=== PATIENT | female | born 1985 | race Caucasian/White ===

== ENCOUNTER 2017-01-23 10:15 | Outpatient (CLI) | payer OTHER | END 2017-01-23 11:38 | disposition home or self-care (01) | LOC: LC 10:15 | PROVIDERS: ATTEND Obstetrics & Gynecology | PROC: 4A1HXCZ Monitoring of Products of Conception, Cardiac Rate, External Approach (ICD-10-PCS; principal; 2017-01-23) | DX: O10.913 Unspecified pre-existing hypertension complicating pregnancy, third trimester (principal); Z3A.34 34 weeks gestation of pregnancy | CPT/HCPCS: 59025 ==

== ENCOUNTER 2017-02-13 16:04 | Outpatient (CLI) | payer OTHER ==
--- NOTE | 2017-02-13 16:10 | Non Stress Test Report ---
Non Stress Test Datetime Report Generated by CPN: 02/13/2017 16:09 DEMOGRAPHIC EGA NST: 34.2 INDICATION Indication for Study: Gestational Hypertension; Ordered by Provider MONITORING Monitor Explained: Monitor Explained; Test Explained; Patient Verbalized Understanding Time on Monitor: 01/23/2017 10:33 Time off Monitor: 01/23/2017 11:17 NST Duration: 44 NST INTERVENTIONS NST Interventions: PO Hydration; Reposition Patient BABY A: [id number] BABY A Movement : Present Contraction Frequency : OCC FHR Baseline : 130 Accelerations : 15X15 Decelerations : None Variability : Moderate 6-25bpm NST Review: Meets Criteria for Reactive NST NST Review and Verified By : Keesha Bellavancbryan RNC NST Results: Reactive NST REPORT Report Trigger: Send Report
[2017-02-13 16:35] LABS: HEMOGLOBIN 11.9 g/dL (12.0-15.5); RED BLOOD COUNT 4.47 10^6/uL (3.72-5.28); WHITE BLOOD COUNT 10.9 10^3/uL (4.0-10.5)
[2017-02-13 16:36] LABS: ABSOLUTE EOSINOPHILS # (AUTO) 0.1 10^3/uL (0.0-0.6); ABSOLUTE LYMPHOCYTES (AUTO) 2.4 10^3/uL (0.5-4.7); ABSOLUTE NEUT (AUTO) 7.4 10^3/uL (1.7-8.2); BASOPHILS % (AUTO) 0.2 % (0-2); EOSINOPHILS % (AUTO) 0.6 % (0-6); HEMATOCRIT 35.9 % (36.0-47.0); HGB HCT DIFFERENCE -0.2; LYMPHOCYTES % (AUTO) 22.3 % (13-45); MEAN CORPUSCULAR HEMOGLOBIN 26.7 pg (27.0-33.4); MEAN CORPUSCULAR HGB CONC 33.2 g/dL (32.0-36.0); MEAN CORPUSCULAR VOLUME 80 fl (80-97); MONOCYTES % (AUTO) 9.1 % (3-13); RED CELL DISTRIBUTION WIDTH 14.8 % (11.5-14.0); SEGMENTED NEUTROPHILS % (AUTO) 67.8 % (42-78)
[2017-02-13 16:37] LABS: APPEARANCE,URINE CLOUDY; BILIRUBIN,URINE NEGATIVE (NEGATIVE); GLUCOSE, URINE NEGATIVE (NEGATIVE); KETONES,URINE NEGATIVE (NEGATIVE); LEUKOCYTE ESTERASE,URINE MODERATE (NEGATIVE); NITRITE,URINE NEGATIVE (NEGATIVE); PROTEIN,URINE NEGATIVE (NEGATIVE); URINE SPECIFIC GRAVITY 1.016; UROBILINOGEN,URINE NEGATIVE mg/dL (<2.0)
[2017-02-13 16:53] LABS: ALANINE AMINOTRANSFERASE 25 U/L (9-52); ALBUMIN 3.4 g/dL (3.5-5.0); ALKALINE PHOSPHATASE 153 U/L (38-126); ANION GAP 10 (5-19); ASPARTATE AMINO TRANSFERASE 24 U/L (14-36); BILIRUBIN,TOTAL 0.3 mg/dL (0.2-1.3); BLOOD UREA NITROGEN 10 mg/dL (7-20); CALCIUM 9.4 mg/dL (8.4-10.2); CARBON DIOXIDE 21 mmol/L (22-30); CHLORIDE 107 mmol/L (98-107); CREATININE RESULT 0.57 mg/dL (0.52-1.25); GLUCOSE 72 mg/dL (75-110); LDH 420 U/L (313-618); POTASSIUM 4.4 mmol/L (3.6-5.0); SODIUM 137.5 mmol/L (137-145); TOTAL PROTEIN 6.1 g/dL (6.3-8.2); URIC ACID 4.8 mg/dL (2.5-6.2)
--- NOTE | 2017-02-13 16:53 | Non Stress Test Report ---
Non Stress Test Datetime Report Generated by CPN: 02/13/2017 16:53 DEMOGRAPHIC EGA NST: 37.2 INDICATION Indication for Study: Ordered by Provider Indication for Study (NST) Other: pre-e MONITORING Monitor Explained: Monitor Explained; Test Explained; Patient Verbalized Understanding Time on Monitor: 02/13/2017 16:24 Time off Monitor: 02/13/2017 16:50 NST Duration: 26 NST INTERVENTIONS NST Interventions: PO Hydration; Reposition Patient BABY A Movement : Present Contraction Frequency : denies FHR Baseline : 130 Accelerations : 15X15 Decelerations : None Variability : Moderate 6-25bpm NST Review: Meets Criteria for Reactive NST NST Review and Verified By : Sowmya Camp RNC NST Results: Reactive NST REPORT Report Trigger: Send Report
[2017-02-13 17:09] LABS: URINE BARBITURATES SCREEN NEGATIVE; URINE METHADONE SCREEN NEGATIVE; URINE OPIATES LOW NEGATIVE; URINE PHENCYCLIDINE SCREEN NEGATIVE
== END 2017-02-13 17:20 | disposition home or self-care (01) ==
LOC: LC 16:04
PROVIDERS: ATTEND Obstetrics & Gynecology
PROC: 4A1HXCZ Monitoring of Products of Conception, Cardiac Rate, External Approach (ICD-10-PCS; principal; 2017-02-13)
DX: O13.3 Gestational [pregnancy-induced] hypertension without significant proteinuria, third trimester (principal); Z3A.37 37 weeks gestation of pregnancy
CPT/HCPCS: 36415; 59025; 80053; 80307; 81001; 83615; 84550; 85025

== ENCOUNTER 2017-02-20 05:11 | Inpatient (IN) | payer OTHER ==
[2017-02-17 12:08] LABS: ABSOLUTE LYMPHOCYTES (AUTO) 1.5 10^3/uL (0.5-4.7); ABSOLUTE MONOCYTES (AUTO) 0.6 10^3/uL (0.1-1.4); ABSOLUTE NEUT (AUTO) 6.7 10^3/uL (1.7-8.2); BASOPHILS % (AUTO) 0.3 % (0-2); EOSINOPHILS % (AUTO) 0.5 % (0-6); HEMATOCRIT 36.7 % (36.0-47.0); HEMOGLOBIN 12.3 g/dL (12.0-15.5); HGB HCT DIFFERENCE 0.2; LYMPHOCYTES % (AUTO) 17.3 % (13-45); MEAN CORPUSCULAR HGB CONC 33.6 g/dL (32.0-36.0); MEAN CORPUSCULAR VOLUME 80 fl (80-97); MONOCYTES % (AUTO) 6.9 % (3-13); RED BLOOD COUNT 4.56 10^6/uL (3.72-5.28); RED CELL DISTRIBUTION WIDTH 14.8 % (11.5-14.0); WHITE BLOOD COUNT 8.9 10^3/uL (4.0-10.5)
[2017-02-17 12:20] LABS: APPEARANCE,URINE SLIGHTLY-CLOUDY; BILIRUBIN,URINE NEGATIVE (NEGATIVE); GLUCOSE, URINE NEGATIVE (NEGATIVE); KETONES,URINE NEGATIVE (NEGATIVE); LEUKOCYTE ESTERASE,URINE NEGATIVE (NEGATIVE); NITRITE,URINE NEGATIVE (NEGATIVE); PROTEIN,URINE NEGATIVE (NEGATIVE); URINE SPECIFIC GRAVITY 1.012; UROBILINOGEN,URINE NEGATIVE mg/dL (<2.0)
[2017-02-17 13:45] LABS: URINE BARBITURATES SCREEN NEGATIVE; URINE METHADONE SCREEN NEGATIVE; URINE OPIATES LOW NEGATIVE; URINE PHENCYCLIDINE SCREEN NEGATIVE
[~2017-02-20 05:11] MED LIST: CEFAZOLIN 2 GM/D5W RTU 2 GM/50 ML RTUPB IV PRN; LACTATED RINGERS 1000 ML IV PRN; LIDOCAINE 0.5% INJ-PF (5 MG/ML) 50 ML SDV SUBCUT PRN; RINGERS SOLUTION,LACTATED 1,000 ML IV ONE
[2017-02-20] MEDS ORDERED: FAMOTIDINE 20 MG TABLET PO ONE (05:35)
[2017-02-20] MEDS ORDERED: MIDAZOLAM 2 MG/2 ML INJ ONE ×2 (08:46→08:47)
[2017-02-20] MEDS ORDERED: PROPOFOL INJ 200 MG/20 ML VIAL IV ONE (08:46)
[2017-02-20] MEDS ORDERED: OXYTOCIN 10 UNIT/ML VIAL ONE (08:46)
[2017-02-20] MEDS ORDERED: FENTANYL CITRATE INJ/PF 100 MCG/2 ML AMPUL ONE (08:46)
[2017-02-20] MEDS ORDERED: ACETAMINOPHEN 100 ML IV ONE (10:20)
--- NOTE | 2017-02-20 10:22 | Operative Report ---
Operative Report DATE OF SURGERY: 02/20/17 PREOPERATIVE DIAGNOSIS: Intrauterine at 39 weeks with chronic hypertension, breech presentation, history of , and desire for repeat OPERATION: Repeat low transverse cervical section ANESTHESIA: Spinal TISSUE REMOVED OR ALTERED: Placenta ESTIMATED BLOOD LOSS: 500 mL INTRAOPERATIVE FINDINGS: [place] female infant in stent with complete breech presentation, Apgars 5 and 8, weight 2990 g, copious amount of clear amniotic fluid, bladder adhesions up approximately a third of the way on the uterus tubes and ovaries not visualized. PROCEDURE: After discussing risks benefits and alternatives of the procedure and obtaining informed consent the patient was taken to the operating room where spinal anesthesia was achieved. She was positioned in the dorsal supine position with a leftward tilt. She was then prepped and draped in the usual standard fashion. Pfannenstiel skin incision was made and the abdomen was entered in layers in the usual standard fashion. Bladder adhesions were lysed sharply. The C safe knife was used to make a low-transverse hysterotomy incision. The surgeon's hand was entered into the hysterotomy incision and and grasped. The was delivered to the level of the it's waist. Each arm was swept down over the anterior chest wall and the head was delivered easily by keeping it in flexion. The cord was clamped and cut and nasopharynx and oropharynx bulb suctioned. The infant was handed to pediatrics who were present. The placenta was manually extracted. The uterus was cleared of all clots and debris. The hysterotomy incision was closed with 0 Monocryl in a running locked fashion. Hemostasis was observed. The peritoneal cavity was irrigated with saline and hemostasis was again assured. A layer of Interceed was placed in an inverted T fashion over the lower uterine segment and anterior aspect of the uterus. Peritoneum was closed with 2-0 Vicryl in a pursestring fashion. Rectus muscles were loosely reapproximated with interrupted stitches of 2-0 Vicryl. The subfascial space was inspected and noted to be hemostatic. The fascia was closed with #1 Vicryl. The subcutaneous tissues were irrigated and hemostasis assured. 3-O plain gut was used to reapproximate the subcutaneous space which was quite thick. The skin was closed in a subcuticular fashion with 4-0 Monocryl. An OpSite dressing was applied. The patient was taken to recovery in stable condition. All sponge needle lap and instrument counts were correct correct.
[2017-02-20] MEDS ORDERED: METOCLOPRAMIDE HCL INJ/PF 10 MG/2 ML SDV ONE (12:07)
[2017-02-20] MEDS ORDERED: ONDANSETRON HCL INJ/PF 4 MG/2 ML SDV ONE (12:07)
[2017-02-20] MEDS ORDERED: PHENYLEPHRINE HCL INJ/PF 10 MG/1 ML SDV ONE (12:07)
[2017-02-20] MEDS ORDERED: OXYCODONE-ACETAMINOPHEN 5-325 MG TABLET ONE (12:44)
[2017-02-20] MEDS ORDERED: ACETAMINOPHEN 325 MG TABLET PO PRN (12:46)
[2017-02-20] MEDS ORDERED: MEASLES,MUMPS&RUBELLA VACC/PF 0.5 ML VIAL SUBCUT PRN (12:46)
[2017-02-20] MEDS ORDERED: DIPH/PERTUSS(ACELL)/TETANUS VAC/PF 0.5 ML SYR (>=10YO) IM PRN (12:46)
[2017-02-20] MEDS ORDERED: HYDROMORPHONE HCL INJ/PF 2 MG/ML AMPULE IV PRN (12:46)
[2017-02-20] MEDS ORDERED: PROMETHAZINE HCL INJ 25 MG/1 ML VIAL IM PRN (12:46)
[2017-02-20] MEDS ORDERED: OXYTOCIN/NORMAL SALINE 20 UNIT/1,000 ML RTUINJ INJ PRN (12:46)
[2017-02-20] MEDS ORDERED: SIMETHICONE 80 MG TAB.CHEW PO PRN (12:46)
[2017-02-20] MEDS ORDERED: OXYCODONE-ACETAMINOPHEN 5-325 MG TABLET PO PRN (12:46)
[2017-02-20] MEDS: OXYCODONE-ACETAMINOPHEN 5-325 MG TABLET PO PRN ×2 (16:58→21:49)
[2017-02-20] MEDS ORDERED: CEFAZOLIN 2 GM/D5W RTU 2 GM/50 ML RTUPB IV ONE (17:00)
[2017-02-20] MEDS: IBUPROFEN 800 MG TABLET PO SCH ×2 (18:02→23:21)
[2017-02-20] MEDS: DOCUSATE SODIUM 100 MG CAPSULE PO SCH (18:56)
[2017-02-20] MEDS: LABETALOL HCL 200 MG TABLET PO SCH (21:48)
[2017-02-21] MEDS: OXYCODONE-ACETAMINOPHEN 5-325 MG TABLET PO PRN ×2 (04:03→09:37)
[2017-02-21] MEDS: IBUPROFEN 800 MG TABLET PO SCH ×3 (05:27→18:47)
[2017-02-21 06:46] LABS: HEMATOCRIT 32.3 % (36.0-47.0); HEMOGLOBIN 10.8 g/dL (12.0-15.5); HGB HCT DIFFERENCE 0.1; MEAN CORPUSCULAR HEMOGLOBIN 26.9 pg (27.0-33.4); MEAN CORPUSCULAR HGB CONC 33.4 g/dL (32.0-36.0); MEAN CORPUSCULAR VOLUME 81 fl (80-97); RED BLOOD COUNT 4.02 10^6/uL (3.72-5.28); WHITE BLOOD COUNT 11.2 10^3/uL (4.0-10.5)
[2017-02-21] MEDS: LABETALOL HCL 200 MG TABLET PO SCH ×2 (09:35→21:58)
[2017-02-21] MEDS: PRENATAL VITAMIN W-O CA NO5/FE FUMARATE/FA CAPSULE PO SCH (09:36)
[2017-02-21] MEDS: DOCUSATE SODIUM 100 MG CAPSULE PO SCH ×2 (09:37→18:47)
--- NOTE | 2017-02-21 11:39 | PDOC PROGRESS REPORT ---
Subjective-OB Subjective: Post Delivery Day: 31 year old. Denies any needs at this time pt in shower spouse present and reports recently being medicated for pain ambulating well opsite changed by RN- reports well approximated with some serosanguineous drainage plan to return to eval Physical Exam (OB) Vital Signs: Temp Pulse Resp BP Pulse Ox 97.8 F 80 18 121/65 98 02/21/17 08:13 02/21/17 08:13 02/21/17 08:13 02/21/17 08:13 02/21/17 08:13 Intake & Output 02/20/17 02/21/17 02/22/17 06:59 06:59 06:59 Intake Total 1490 Output Total 1670 Balance -180 Weight 278 kg - PIH/Pre-Eclampsia Clonus: Negative Headache: Absent Epigastric Pain: No Visual Changes: No - Dressing Removed: Yes - opsite dressing changed d/t saturation Incision: Well Approximated Closure Type: opsite - Lochia Lochia Amount: Scant < 10 ml Lochia Color: Rubra/Red - Abdomen Description: Tender, Soft Hernia Present: No Fundal Description: Firm, Midline Fundal Height: u/u - u/2 Objective-Diagnostic Laboratory: 02/21/17 06:33 02/21/17 06:33 WBC 11.2 H RBC 4.02 Hgb 10.8 L Hct 32.3 L MCV 81 MCH 26.9 L MCHC 33.4 RDW 15.0 H Plt Count 173
[2017-02-22] MEDS: IBUPROFEN 800 MG TABLET PO SCH ×2 (01:40→07:00)
--- NOTE | 2017-02-22 09:03 | PDOC PROGRESS REPORT ---
Subjective-OB Subjective: Post Delivery Day: 31 year old. Denies any needs at this time Doing well, sitting on side of bed holding baby, ready to go home, breast feeding, pain under control, voiding, scant bleeding Physical Exam (OB) Vital Signs: Temp Pulse Resp BP Pulse Ox 97.4 F 80 18 126/63 H 100 02/22/17 08:04 02/22/17 08:04 02/22/17 08:04 02/22/17 08:04 02/22/17 08:04 Intake & Output 02/21/17 02/22/17 02/23/17 06:59 06:59 06:59 Intake Total 1490 560 Output Total 1670 Balance -180 560 - PIH/Pre-Eclampsia Clonus: Negative Headache: Absent Epigastric Pain: No Visual Changes: No - Dressing Removed: Yes Incision: Well Approximated Closure Type: opsite - Lochia Lochia Amount: Scant < 10 ml Lochia Color: Rubra/Red - Abdomen Description: Firm Hernia Present: No Fundal Description: Firm Fundal Height: u/u - u/2 Objective-Diagnostic Laboratory: 02/21/17 06:33 Assessment and Plan(PN) - Assessment and Plan (1) Chronic hypertension in obstetric context Qualifiers: Trimester: first trimester Qualified Code(s): O10.911 - Unspecified pre-existing hypertension complicating , first trimester Is this a current diagnosis for this admission?: Yes (2) Morbid obesity with body mass index of 50 or higher Is this a current diagnosis for this admission?: Yes (3) Delivery by elective caesarean section Is this a current diagnosis for this admission?: Yes - Time Spent with Patient Time with patient: Less than 15 minutes Medications reviewed and adjusted accordingly: Yes - Disposition Anticipated Discharge: Home - home today
--- NOTE | 2017-02-22 09:11 | PDOC DISCHARGE SUMMARY ---
Final Diagnosis Discharge Date: 02/22/17 - Final Diagnosis (1) Chronic hypertension in obstetric context Is this a current diagnosis for this admission?: Yes (2) Morbid obesity with body mass index of 50 or higher Is this a current diagnosis for this admission?: Yes (3) Delivery by elective caesarean section Is this a current diagnosis for this admission?: Yes Discharge Data - Discharge Medication Home Medications: Vit/Iron Fumarate/FA [ Tablet] 1 tab PO DAILY 01/23/17 Labetalol HCl 1 tab PO BID #60 tablet 02/22/17 Oxycodone HCl/Acetaminophen [Percocet 5-325 mg Tablet] 1 tab PO Q4HP PRN #30 tablet 02/22/17 Gestational Age: 38.5 Reason(s) for Admission: Ceasarean Section-Primary, Obstetric Complications, Gestional Diabetes Procedures: NST, Ultrasound Intrapartum Procedure(s): : Low Cervical, Transverse - [place] Data Baby 1 Female Weight: 3.005 kg Home with Mother: Yes Complications: No - Diagnosis Test Laboratory: Temp Pulse Resp BP Pulse Ox 97.4 F 80 18 126/63 H 100 02/22/17 08:04 02/22/17 08:04 02/22/17 08:04 02/22/17 08:04 02/22/17 08:04 02/17/17 02/17/17 02/21/17 11:08 11:15 06:33 RBC 4.56 4.02 Hgb 12.3 10.8 L Hct 36.7 32.3 L Urine Opiates Screen NEGATIVE - Discharge information/Instructions Discharge Activity: Activity As Tolerated, No Driving, No Lifting Over 10 Pounds , No Lifting/Push/Pulling, Pelvic Rest, No tub bath Discharge Diet: Regular Disposition: HOME, SELF-CARE Follow up with: [facility] in: 1, Weeks
[2017-02-22 09:14] VITALS: BP 131/67
[2017-02-22] MEDS: PRENATAL VITAMIN W-O CA NO5/FE FUMARATE/FA CAPSULE PO SCH (09:25)
[2017-02-22] MEDS: DOCUSATE SODIUM 100 MG CAPSULE PO SCH (09:25)
[2017-02-22] MEDS: LABETALOL HCL 200 MG TABLET PO SCH (09:25)
[2017-02-22] MEDS: OXYCODONE-ACETAMINOPHEN 5-325 MG TABLET PO PRN (10:05)
== END 2017-02-22 12:00 | disposition home or self-care (01) | DRG 765 ==
LOC: 2S 05:11
PROVIDERS: ADMIT Obstetrics & Gynecology; ATTEND Obstetrics & Gynecology
PROC: 4A1HXCZ Monitoring of Products of Conception, Cardiac Rate, External Approach (ICD-10-PCS; 2017-02-20)
PROC: 10D00Z1 Extraction of Products of Conception, Low, Open Approach (ICD-10-PCS; principal; 2017-02-20 08:30)
DX: O64.1XX0 Obstructed labor due to breech presentation, not applicable or unspecified (principal); O10.92 Unspecified pre-existing hypertension complicating childbirth; Z68.43 Body mass index [BMI] 50.0-59.9, adult; O24.429 Gestational diabetes mellitus in childbirth, unspecified control; O34.211 Maternal care for low transverse scar from previous cesarean delivery; Z79.899 Other long term (current) drug therapy; O99.214 Obesity complicating childbirth; E66.01 Morbid (severe) obesity due to excess calories; Z82.49 Family history of ischemic heart disease and other diseases of the circulatory system; Z83.3 Family history of diabetes mellitus; Z37.0 Single live birth; Z3A.39 39 weeks gestation of pregnancy; Z87.891 Personal history of nicotine dependence
CPT/HCPCS: 1961; 36415; 59025; 80307; 81001; 85025; 85027; 86850; 86900; 86901; 88307; 94799; C1765; J0131; J0690; J2250; J2370; J2405; J2590; J2704; J2765; J3010; J7120

== ENCOUNTER 2019-12-17 09:40 | Outpatient (CLI) | payer OTHER ==
[2019-12-17 10:04] LABS: APPEARANCE,URINE SLIGHTLY-CLOUDY; BILIRUBIN,URINE NEGATIVE (NEGATIVE); COLOR,URINE YELLOW; GLUCOSE, URINE NEGATIVE (NEGATIVE); KETONES,URINE NEGATIVE (NEGATIVE); LEUKOCYTE ESTERASE,URINE SMALL (NEGATIVE); NITRITE,URINE NEGATIVE (NEGATIVE); PROTEIN,URINE NEGATIVE (NEGATIVE); URINE SPECIFIC GRAVITY 1.012; UROBILINOGEN,URINE NEGATIVE mg/dL (<2.0)
[2019-12-17 10:26] LABS: URINE AMPHETAMINES SCREEN NEGATIVE; URINE BARBITURATES SCREEN NEGATIVE; URINE BENZODIAZEPINES SCREEN NEGATIVE; URINE COCAINE SCREEN NEGATIVE; URINE MARIJUANA (THC) SCREEN NEGATIVE; URINE METHADONE SCREEN NEGATIVE; URINE PHENCYCLIDINE SCREEN NEGATIVE
[2019-12-17 10:30] LABS: UR PRO/CREAT RATIO RESULT 0.2 mg/mg (0.0-0.2); URINE CREATININE 66.5 mg/dL (16-327); URINE PROTEIN 11.3 mg/dL (<12)
[2019-12-17 10:37] LABS: HEMATOCRIT 40.4 % (36.0-47.0); HEMOGLOBIN 13.7 g/dL (12.0-15.5); MEAN CORPUSCULAR HEMOGLOBIN 29.2 pg (27.0-33.4); MEAN CORPUSCULAR VOLUME 86 fl (80-97); PLATELET COUNT 146 10^3/uL (150-450); RED BLOOD COUNT 4.69 10^6/uL (3.72-5.28); RED CELL DISTRIBUTION WIDTH 14.2 % (11.5-14.0); WHITE BLOOD COUNT 9.5 10^3/uL (4.0-10.5)
[2019-12-17 11:02] LABS: ALBUMIN 3.2 g/dL (3.5-5.0); ALKALINE PHOSPHATASE 111 U/L (38-126); ANION GAP 6 (5-19); ASPARTATE AMINO TRANSFERASE 20 U/L (14-36); BILIRUBIN,TOTAL 0.3 mg/dL (0.2-1.3); BLOOD UREA NITROGEN 7 mg/dL (7-20); CARBON DIOXIDE 22 mmol/L (22-30); CHLORIDE 106 mmol/L (98-107); POTASSIUM 4.2 mmol/L (3.6-5.0); TOTAL PROTEIN 5.9 g/dL (6.3-8.2); URIC ACID 4.5 mg/dL (2.5-7.0)
[2019-12-17 11:11] LABS: GLUCOSE 69 mg/dL (75-110)
--- NOTE | 2019-12-17 12:55 | Non Stress Test Report ---
Non Stress Test Datetime Report Generated by CPN: 12/17/2019 12:55 DEMOGRAPHIC EGA NST: 36.1 VITAL SIGNS Temperature - NST: 97.9 RESP - NST: 16 MONITORING Monitor Explained: Monitor Explained; Test Explained; Patient Verbalized Understanding Time on Monitor: 12/17/2019 09:55 Time off Monitor: 12/17/2019 11:00 NST Duration: 65 NST INTERVENTIONS NST Interventions: PO Hydration; Reposition Patient Physician Notified NST: K JENKINS, CNM BABY A: [id number] BABY A Movement : Present Contraction Frequency : IRREG FHR Baseline : 140 Accelerations : 15X15 Decelerations : None Variability : Moderate 6-25bpm NST Review: Meets Criteria for Reactive NST NST Review and Verified By : BG Huitron Results: Reactive NST REPORT Report Trigger: Send Report
== END 2019-12-17 11:55 | disposition home or self-care (01) ==
LOC: LC 09:40
PROVIDERS: ATTEND Obstetrics & Gynecology
PROC: 4A1HXCZ Monitoring of Products of Conception, Cardiac Rate, External Approach (ICD-10-PCS; principal; 2019-12-17)
DX: O16.3 Unspecified maternal hypertension, third trimester (principal); O09.529 Supervision of elderly multigravida, unspecified trimester; Z3A.36 36 weeks gestation of pregnancy
CPT/HCPCS: 36415; 59025; 80053; 80307; 81005; 82570; 83615; 84156; 84550; 85027

== ENCOUNTER 2019-12-25 04:54 | Inpatient (IN) | payer OTHER ==
[2019-12-24 11:10] LABS: ABSOLUTE LYMPHOCYTES (AUTO) 1.6 10^3/uL (0.5-4.7); ABSOLUTE MONOCYTES (AUTO) 0.6 10^3/uL (0.1-1.4); ABSOLUTE NEUT (AUTO) 6.1 10^3/uL (1.7-8.2); BASOPHILS % (AUTO) 0.3 % (0-2); EOSINOPHILS % (AUTO) 0.4 % (0-6); HEMATOCRIT 39.7 % (36.0-47.0); HEMOGLOBIN 13.8 g/dL (12.0-15.5); LYMPHOCYTES % (AUTO) 19.6 % (13-45); MEAN CORPUSCULAR HEMOGLOBIN 29.6 pg (27.0-33.4); MEAN CORPUSCULAR HGB CONC 34.7 g/dL (32.0-36.0); MEAN CORPUSCULAR VOLUME 85 fl (80-97); MONOCYTES % (AUTO) 7.6 % (3-13); PLATELET COUNT 142 10^3/uL (150-450); RED BLOOD COUNT 4.65 10^6/uL (3.72-5.28); RED CELL DISTRIBUTION WIDTH 14.5 % (11.5-14.0); SEGMENTED NEUTROPHILS % (AUTO) 72.1 % (42-78); TOTAL CELLS COUNTED % (AUTO) 100 %; WHITE BLOOD COUNT 8.4 10^3/uL (4.0-10.5)
[2019-12-24 11:12] LABS: APPEARANCE,URINE CLEAR; BILIRUBIN,URINE NEGATIVE (NEGATIVE); COLOR,URINE STRAW; GLUCOSE, URINE NEGATIVE (NEGATIVE); KETONES,URINE NEGATIVE (NEGATIVE); LEUKOCYTE ESTERASE,URINE NEGATIVE (NEGATIVE); NITRITE,URINE NEGATIVE (NEGATIVE); PROTEIN,URINE NEGATIVE (NEGATIVE); URINE SPECIFIC GRAVITY 1.009; UROBILINOGEN,URINE NEGATIVE mg/dL (<2.0)
[2019-12-24 11:30] LABS: URINE AMPHETAMINES SCREEN NEGATIVE; URINE BARBITURATES SCREEN NEGATIVE; URINE BENZODIAZEPINES SCREEN NEGATIVE; URINE COCAINE SCREEN NEGATIVE; URINE MARIJUANA (THC) SCREEN NEGATIVE; URINE METHADONE SCREEN NEGATIVE; URINE PHENCYCLIDINE SCREEN NEGATIVE
[2019-12-24 11:43] LABS: ALBUMIN 3.4 g/dL (3.5-5.0); ALKALINE PHOSPHATASE 124 U/L (38-126); ANION GAP 11 (5-19); ASPARTATE AMINO TRANSFERASE 25 U/L (14-36); BILIRUBIN,DIRECT 0.2 mg/dL (0.0-0.4); BILIRUBIN,TOTAL 0.4 mg/dL (0.2-1.3); BLOOD UREA NITROGEN 10 mg/dL (7-20); CALCIUM 9.6 mg/dL (8.4-10.2); CARBON DIOXIDE 20 mmol/L (22-30); CHLORIDE 104 mmol/L (98-107); POTASSIUM 4.3 mmol/L (3.6-5.0); TOTAL PROTEIN 6.4 g/dL (6.3-8.2); URIC ACID 5.2 mg/dL (2.5-7.0)
[2019-12-24 11:47] LABS: GLUCOSE 69 mg/dL (75-110)
[2019-12-25] MEDS ORDERED: LIDOCAINE 0.5% INJ-PF (5 MG/ML) 50 ML SDV SUBCUT PRN (05:00)
[2019-12-25] MEDS ORDERED: LACTATED RINGERS 1000 ML IV PRN (05:00)
[2019-12-25] MEDS ORDERED: CEFAZOLIN SODIUM 2 GM in DEXTROSE 5%-WATER 100 ML IV PRN (05:00)
[2019-12-25] MEDS ORDERED: RINGERS SOLUTION,LACTATED 1,000 ML IV ONE (07:00)
[2019-12-25] MEDS ORDERED: KETOROLAC TROMETHAMINE INJ/PF 30 MG/1 ML SDV ONE (07:17)
[2019-12-25] MEDS ORDERED: MIDAZOLAM 2 MG/2 ML INJ ONE (07:17)
[2019-12-25] MEDS ORDERED: PHENYLEPHRINE HCL INJ/PF 10 MG/1 ML SDV ONE (07:17)
[2019-12-25] MEDS ORDERED: OXYTOCIN 10 UNIT/ML VIAL ONE (07:17)
[2019-12-25] MEDS ORDERED: DIPHENHYDRAMINE HCL 50 MG/ML VIAL ONE (07:17)
[2019-12-25] MEDS ORDERED: GLYCOPYRROLATE INJ 0.4 MG/2 ML VIAL ONE (07:17)
[2019-12-25] MEDS ORDERED: FENTANYL CITRATE INJ/PF 100 MCG/2 ML AMPUL ONE (07:17)
[2019-12-25] MEDS ORDERED: OXYTOCIN/NORMAL SALINE 20 UNIT/1,000 ML RTUINJ ONE ×2 (07:17→10:01)
[2019-12-25] MEDS ORDERED: ONDANSETRON HCL INJ/PF 4 MG/2 ML SDV ONE (07:18)
[2019-12-25] MEDS ORDERED: FENTANYL CITRATE INJ/PF 100 MCG/2 ML AMPUL IV PRN ×3 (08:12)
[2019-12-25] MEDS ORDERED: DIPHENHYDRAMINE HCL 50 MG/ML VIAL IV PRN (08:12)
[2019-12-25] MEDS ORDERED: MORPHINE SULFATE 10 MG/ML INJ IV PRN (08:12)
[2019-12-25] MEDS ORDERED: MEPERIDINE HCL/PF INJ 25 MG/1 ML DISP.SYRIN IV PRN (08:12)
[2019-12-25] MEDS ORDERED: ONDANSETRON HCL INJ/PF 4 MG/2 ML SDV IV PRN (08:12)
[2019-12-25] MEDS ORDERED: OXYCODONE-ACETAMINOPHEN 5-325 MG TABLET PO PRN ×3 (08:12→09:41)
[2019-12-25] MEDS ORDERED: PROMETHAZINE HCL INJ 25 MG/1 ML VIAL IV PRN ×3 (08:12→09:41)
[2019-12-25] MEDS ORDERED: HYDROMORPHONE HCL INJ/PF 2 MG/ML AMPULE IV PRN (09:41)
[2019-12-25] MEDS ORDERED: DIPH/PERTUSS(ACELL)/TETANUS VAC/PF 0.5 ML SYR (>=10YO) IM PRN (09:41)
[2019-12-25] MEDS ORDERED: MEASLES,MUMPS&RUBELLA VACC/PF 0.5 ML VIAL SUBCUT PRN (09:41)
[2019-12-25] MEDS ORDERED: ACETAMINOPHEN 325 MG TABLET PO PRN (09:41)
[2019-12-25] MEDS ORDERED: SIMETHICONE 80 MG TAB.CHEW PO PRN (09:41)
[2019-12-25] MEDS ORDERED: OXYTOCIN/NORMAL SALINE 20 UNIT/1,000 ML RTUINJ IV PRN ×2 (09:41→10:20)
--- NOTE | 2019-12-25 11:35 | Operative Report ---
Operative Report DATE OF SURGERY: 12/25/19 PREOPERATIVE DIAGNOSIS: Intrauterine at 39 + wks EGA. History prior section x2 POSTOPERATIVE DIAGNOSIS: Same as above OPERATION: Repeat section SURGEON: ELISA MAZARIEGOS ANESTHESIA: Spinal TISSUE REMOVED OR ALTERED: Placenta COMPLICATIONS: None ESTIMATED BLOOD LOSS: 915 INTRAOPERATIVE FINDINGS: Normal appearing uterus other than adhesions on right side to anterior abdominal wall. Left fallopian tube and ovary grossly normal. Not able to see right ovary or tube. PROCEDURE: IV fluids: per anesthesia record Urinary output: 150 cc Position: To recovery room in stable condition Description of procedure: The patient was taken to the operating room and spinal anesthesia was administered and found to be adequate. She was then placed on the OR table in the supine position with a slight leftward tilt. Patient was prepped and draped in usual sterile fashion. Ancef 2 gms was given IV prior to the procedure for infection prophylaxis. Timeout was taken. A Pfannenstiel skin incision was then made approximately 3 cm above the pubic symphysis and carried down to level the rectus fascia. MOderate amount of scar tissue was noted. The rectus fascia was then nicked in the midline with a scalpel and the fascial incision was extended laterally with use of curved Van scissors. The rectus fascia was then grasped with 2 Kocker clamps elevated and the underlying rectus muscle was dissected off both bluntly and sharply. Any bleeding controlled with cautery. The rectus muscles were then split in the midline and the peritoneum was entered. The peritoneal incision was then extended by manually stretching the peritoneum. The bladder blade was positioned. Bladder flap created and bladder blade replaced. The bladder was noted to be out of harm's way. A scalpel was then used in the lower uterine for the hysterotomy, slowly until amniotomy was obtained a large amount of fluid was noted. The uterine incision was then manually stretched. The was noted to be in vertex postion but engaged in the pelvis. The head was delivered with some difficulty and Kiwi vaccum was placed anterior to the posterior fontanelle and suction applied to the green region. Kiwi used with pressure from assistant professor of dietetics to deliver the head. The shoulders and the rest of the body followed and the right arm was delivered prior to facilitate. The cord was cut clamped and the infant was handed off to the nurse awaiting. The placenta was manually delivered. Using a lap gauze the uterus was cleared of all clots and debris. The shruthi retractor was placed to visualize the uterine incision as the uterus had adhesions between the anterior abdominal wall and lateral side of right uterus: which made it difficult to exteriorlize. Bladder was out of harms way. The uterine incision was then closed with 0 Chromic suture in a running locked fashion. A second layer of the same suture was used in a running locked imbricated fashion. The uterine incision was inspected and one area on the left was noted to be oozing . A box stitch was placed and then incision was noted to be hemostatic. Retractor was removed. Right ovary not seen. Left tube and ovary appear grossly normal. Warm saline irrigation was used to clear all clots and debris from the abdomen. The uterine incision was inspected once more and noted to remain hemostatic. The bladder blade was removed and the peritoneum was closed with 2-0 chromic in a running fashion. The rectus muscles were then reapproximated and the rectus fascia was closed with a #1 PDS in a running fashion. The subcutaneous tissue was then inspected and any bleeding was controlled with Bovie electrocautery. The subcutaneous tissue was then closed with 2-0 Plain Gut suture in a running fashion. The skin was then closed with 3-0 Monocryl in a running subcuticular fashion. The skin incision was then clean dried and Dermabond was applied over the skin incision. All instrument sponge and needle counts were correct x3 for the procedure the patient tolerated the procedure well. She will proceed to recovery room in stable condition
--- NOTE | 2019-12-25 11:36 | PDOC DELIVERY SUMMARY ---
Delivery Summary - Maternal Hx : III Hx Para: II Hx # Term Pregnancies: 3 SONIA: 01/13/20 Risk Factors: Previous Ruptured Membranes: AROM Time of Rupture: 08:31 Fluids: Clear - Delivery Presentation: Vertex Heart Rate Monitoring: Done Pre-Operatively Support Person Present: Yes Location: OR : Scheduled, Repeat Placenta: Within Normal Limits Delivery of Placenta Date: 12/25/19 Delivery of Placenta Time: 08:35 - Medications Type of Anesthesia:: Spinal - Assess and Care Baby 1 Male Delivery of Infant Date: 12/25/19 Delivery of Infant Time: 08:33 at 1 minute: 8 at 5 minutes: 9 Preprinted Number On Band: [id number] Skin to Skin: No To Nursery At: 08:43 Mode of Transport: Bassinet Infant Delivery Weight: 3,200 Delivery Length: 19 in - Delivery Personnel Nursery RN: ADINA FIGUEROA
[2019-12-25] MEDS ORDERED: IBUPROFEN 800 MG TABLET PO SCH (12:00)
[2019-12-25] MEDS: OXYCODONE-ACETAMINOPHEN 5-325 MG TABLET PO PRN ×2 (12:29→21:34)
[2019-12-25] MEDS: DOCUSATE SODIUM 100 MG CAPSULE PO SCH ×2 (14:02→17:23)
[2019-12-25] MEDS: PRENATAL VITAMIN W DHA CAPSULE PO SCH (14:03)
[2019-12-25] MEDS: KETOROLAC TROMETHAMINE INJ/PF 30 MG/1 ML SDV IV SCH (17:24)
[2019-12-26] MEDS ORDERED: KETOROLAC TROMETHAMINE INJ/PF 30 MG/1 ML SDV ONE (01:07)
[2019-12-26] MEDS: KETOROLAC TROMETHAMINE INJ/PF 30 MG/1 ML SDV IV SCH (01:12)
[2019-12-26] MEDS: IBUPROFEN 800 MG TABLET PO SCH ×4 (06:39→23:11)
[2019-12-26 06:59] LABS: HEMATOCRIT 31.9 % (36.0-47.0); MEAN CORPUSCULAR HEMOGLOBIN 30.3 pg (27.0-33.4); MEAN CORPUSCULAR VOLUME 87 fl (80-97); PLATELET COUNT 120 10^3/uL (150-450); RED BLOOD COUNT 3.68 10^6/uL (3.72-5.28); RED CELL DISTRIBUTION WIDTH 14.2 % (11.5-14.0)
[2019-12-26 07:01] LABS: HEMOGLOBIN 11.1 g/dL (12.0-15.5)
[2019-12-26] MEDS: DOCUSATE SODIUM 100 MG CAPSULE PO SCH ×2 (10:02→18:01)
[2019-12-26] MEDS: PRENATAL VITAMIN W DHA CAPSULE PO SCH (10:02)
--- NOTE | 2019-12-26 10:30 | PDOC PROGRESS REPORT ---
Subjective-OB Progress Note for:: 12/26/19 Subjective: Pt doing well, no concerns. Reports light bleeding, reg diet and voiding without difficulty. Physical Exam (OB) Vital Signs: Temp Pulse Resp BP Pulse Ox 98.6 F 76 20 141/80 H 100 12/26/19 04:11 12/26/19 07:34 12/26/19 07:34 12/26/19 07:34 12/26/19 07:34 Intake & Output 12/25/19 12/26/19 12/27/19 06:59 06:59 06:59 Intake Total 2240 250 Output Total 920 Balance 1320 250 Weight 116.12 kg - PIH/Pre-Eclampsia DTR's: 2 + Clonus: Negative Headache: Absent Epigastric Pain: No Visual Changes: No - Incision: Well Approximated Closure Type: Surgical Glue - Lochia Lochia Amount: Small 10-25 ml Lochia Color: Rubra/Red - Abdomen Description: Soft, Round Fundal Description: Firm, Midline Fundal Height: u/u - u/2 Objective-Diagnostic Laboratory: 12/26/19 06:08 12/24/19 09:58 12/26/19 06:08 WBC 10.0 RBC 3.68 L Hgb 11.1 L D Hct 31.9 L MCV 87 MCH 30.3 MCHC 35.0 RDW 14.2 H Plt Count 120 L Assessment and Plan(PN) - Assessment and Plan (1) Chronic hypertension in obstetric context Qualifiers: Trimester: third trimester Qualified Code(s): O10.913 - Unspecified pre- existing hypertension complicating , third trimester Is this a current diagnosis for this admission?: Yes (2) Delivery by elective caesarean section Is this a current diagnosis for this admission?: Yes (3) Morbid obesity with body mass index of 50 or higher Is this a current diagnosis for this admission?: Yes - Time Spent with Patient Time with patient: Less than 15 minutes Medications reviewed and adjusted accordingly: Yes - Disposition Anticipated Discharge: Home Within: within 24 hours
[2019-12-26] MEDS: OXYCODONE-ACETAMINOPHEN 5-325 MG TABLET PO PRN (15:34)
[2019-12-27] MEDS: IBUPROFEN 800 MG TABLET PO SCH ×2 (05:06→11:08)
[2019-12-27] MEDS: PRENATAL VITAMIN W DHA CAPSULE PO SCH (09:57)
[2019-12-27] MEDS: DOCUSATE SODIUM 100 MG CAPSULE PO SCH (09:58)
[2019-12-27 11:30] VITALS: BP 151/84
--- NOTE | 2019-12-27 12:30 | PDOC DISCHARGE SUMMARY ---
Impression - Admit/DC Date/PCP Admission Date/Primary Care Provider: 12/25/19 04:54 ELISA MAZARIEGOS MD Discharge Date: 12/27/19 - Discharge Diagnosis (1) Thrombocytopenia Is this a current diagnosis for this admission?: Yes (2) Chronic hypertension in obstetric context Is this a current diagnosis for this admission?: Yes (3) Delivery by elective caesarean section Is this a current diagnosis for this admission?: Yes (4) Morbid obesity with body mass index of 50 or higher Is this a current diagnosis for this admission?: Yes - Additional Information Discharge Diet: Regular Discharge Activity: Balance Activity w/Rest, No Lifting Over 10 Pounds, No Lifting/Push/Pulling, Pelvic Rest, No tub bath Referrals: ELISA MAZARIEGOS MD [Primary Care Provider] - Prescriptions: Ibuprofen [Motrin 800 mg Tablet] 800 mg PO Q8HP PRN #60 tablet PRN Reason: Oxycodone HCl/Acetaminophen [Percocet 5-325 mg Tablet] 1 tab PO Q4HP PRN #30 tablet PRN Reason: Home Medications: Vit/Iron Fum/Folic AC [ Tablet] 1 tab PO DAILY 01/23/17 Cetirizine HCl [All Day Allergy] 2 mg PO DAILY 12/17/19 Iron,Carb/Vit C/Vit B12/Folic [Iron 100 Plus Tablet] 1 each PO DAILY 12/17/19 Sertraline HCl [Zoloft 50 mg Tablet] 50 mg PO DAILY 12/17/19 Nifedipine [Procardia Xl] 30 mg PO DAILY 12/24/19 Ibuprofen [Motrin 800 mg Tablet] 800 mg PO Q8HP PRN #60 tablet 12/27/19 Oxycodone HCl/Acetaminophen [Percocet 5-325 mg Tablet] 1 tab PO Q4HP PRN #30 tablet 12/27/19 HPI Gestational Age: 39 Reason(s) for Admission: Ceasarean Section-Repeat Procedures: NST Intrapartum Procedure(s): : Low Cervical, Transverse Results Laboratory Results: WBC 10.0 10^3/uL (4.0-10.5) 12/26/19 06:08 RBC 3.68 10^6/uL (3.72-5.28) L 12/26/19 06:08 Hgb 11.1 g/dL (12.0-15.5) L D 12/26/19 06:08 Hct 31.9 % (36.0-47.0) L 12/26/19 06:08 MCV 87 fl (80-97) 12/26/19 06:08 MCH 30.3 pg (27.0-33.4) 12/26/19 06:08 MCHC 35.0 g/dL (32.0-36.0) 12/26/19 06:08 RDW 14.2 % (11.5-14.0) H 12/26/19 06:08 Plt Count 120 10^3/uL (150-450) L 12/26/19 06:08 Lymph % (Auto) 19.6 % (13-45) 12/24/19 09:58 [place] % (Auto) 7.6 % (3-13) 12/24/19 09:58 Eos % (Auto) 0.4 % (0-6) 12/24/19 09:58 Baso % (Auto) 0.3 % (0-2) 12/24/19 09:58 Absolute Neuts (auto) 6.1 10^3/uL (1.7-8.2) 12/24/19 09:58 Absolute Lymphs (auto) 1.6 10^3/uL (0.5-4.7) 12/24/19 09:58 Absolute Monos (auto) 0.6 10^3/uL (0.1-1.4) 12/24/19 09:58 Absolute Eos (auto) 0.0 10^3/uL (0.0-0.6) 12/24/19 09:58 Absolute Basos (auto) 0.0 10^3/uL (0.0-0.2) 12/24/19 09:58 Seg Neutrophils % 72.1 % (42-78) 12/24/19 09:58 Sodium 134.8 mmol/L (137-145) L 12/24/19 09:58 Potassium 4.3 mmol/L (3.6-5.0) 12/24/19 09:58 Chloride 104 mmol/L (98-107) 12/24/19 09:58 Carbon Dioxide 20 mmol/L (22-30) L 12/24/19 09:58 Anion Gap 11 (5-19) 12/24/19 09:58 BUN 10 mg/dL (7-20) 12/24/19 09:58 Creatinine 0.49 mg/dL (0.52-1.25) L 12/24/19 09:58 Est GFR ( Amer) > 60 (>60) 12/24/19 09:58 Est GFR (MDRD) Non-Af > 60 (>60) 12/24/19 09:58 Glucose 69 mg/dL (75-110) L 12/24/19 09:58 Uric Acid 5.2 mg/dL (2.5-7.0) 12/24/19 09:58 Calcium 9.6 mg/dL (8.4-10.2) 12/24/19 09:58 Total Bilirubin 0.4 mg/dL (0.2-1.3) 12/24/19 09:58 Direct Bilirubin 0.2 mg/dL (0.0-0.4) 12/24/19 09:58 Neonat Total Bilirubin Not Reportable 12/24/19 09:58 Neonat Direct Bilirubin Not Reportable 12/24/19 09:58 Neonat Indirect Bili Not Reportable 12/24/19 09:58 AST 25 U/L (14-36) 12/24/19 09:58 ALT 10 U/L (<35) 12/24/19 09:58 Alkaline Phosphatase 124 U/L (38-126) 12/24/19 09:58 Lactate Dehydrogenase 163 U/L (120-246) 12/24/19 09:58 Total Protein 6.4 g/dL (6.3-8.2) 12/24/19 09:58 Albumin 3.4 g/dL (3.5-5.0) L 12/24/19 09:58 Urine Color STRAW 12/24/19 10:09 Urine Appearance CLEAR 12/24/19 10:09 Urine pH 7.0 (5.0-9.0) 12/24/19 10:09 Ur Specific [place] 1.009 12/24/19 10:09 Urine Protein NEGATIVE mg/dL (NEGATIVE) 12/24/19 10:09 Urine Glucose (UA) NEGATIVE mg/dL (NEGATIVE) 12/24/19 10:09 Urine Ketones NEGATIVE mg/dL (NEGATIVE) 12/24/19 10:09 Urine Blood NEGATIVE (NEGATIVE) 12/24/19 10:09 Urine Nitrite NEGATIVE (NEGATIVE) 12/24/19 10:09 Urine Bilirubin NEGATIVE (NEGATIVE) 12/24/19 10:09 Urine Urobilinogen NEGATIVE mg/dL (<2.0) 12/24/19 10:09 Ur Leukocyte Esterase NEGATIVE (NEGATIVE) 12/24/19 10:09 Urine WBC (Auto) 0 /HPF 12/24/19 10:09 Urine Bacteria (Auto) TRACE /HPF 12/24/19 10:09 Squamous Epi Cells Auto 2 /HPF 12/24/19 10:09 Urine Mucus (Auto) RARE /LPF 12/24/19 10:09 Urine Ascorbic Acid NEGATIVE (NEGATIVE) 12/24/19 10:09 Urine Opiates Screen NEGATIVE 12/24/19 10:09 Urine Methadone Screen NEGATIVE 12/24/19 10:09 Ur Barbiturates Screen NEGATIVE 12/24/19 10:09 Ur Phencyclidine Scrn NEGATIVE 12/24/19 10:09 Ur Amphetamines Screen NEGATIVE 12/24/19 10:09 U Benzodiazepines Scrn NEGATIVE 12/24/19 10:09 Urine Cocaine Screen NEGATIVE 12/24/19 10:09 U Marijuana (THC) Screen NEGATIVE 12/24/19 10:09 Blood Type O NEGATIVE 12/24/19 09:58 Antibody Screen NEGATIVE 12/24/19 09:58 Plan Plan of Treatment: follow up in 1 week for incision and BP check. consider recheck platelets
== END 2019-12-27 13:45 | disposition home or self-care (01) | DRG 787 ==
LOC: 2S 04:54
PROVIDERS: ADMIT Obstetrics & Gynecology; ATTEND Obstetrics & Gynecology
PROC: 10D00Z1 Extraction of Products of Conception, Low, Open Approach (ICD-10-PCS; principal; 2019-12-25 07:45)
DX: O34.211 Maternal care for low transverse scar from previous cesarean delivery (principal); O99.12 Other diseases of the blood and blood-forming organs and certain disorders involving the immune mechanism complicating childbirth; O99.344 Other mental disorders complicating childbirth; O13.4 Gestational [pregnancy-induced] hypertension without significant proteinuria, complicating childbirth; F32.9 Major depressive disorder, single episode, unspecified; Z79.899 Other long term (current) drug therapy; O99.89 Other specified diseases and conditions complicating pregnancy, childbirth and the puerperium; N73.6 Female pelvic peritoneal adhesions (postinfective); O99.214 Obesity complicating childbirth; E66.01 Morbid (severe) obesity due to excess calories; Z87.891 Personal history of nicotine dependence; Z37.0 Single live birth; D69.6 Thrombocytopenia, unspecified; Z3A.39 39 weeks gestation of pregnancy
CPT/HCPCS: 1961; 36415; 59025; 80053; 80307; 81001; 83615; 84550; 85025; 85027; 86850; 86900; 86901; 94760; 94799; J0690; J1200; J1885; J2250; J2370; J2405; J2590; J3010; J3490; J7060; J7120